=== PATIENT | female | born 1960 | race Caucasian/White ===

== ENCOUNTER 2017-04-28 11:46 | Emergency (ER) | payer OTHER ==
[~2017-04-28] VITALS: Ht 175.3 cm; Wt 120.6 kg
[~2017-04-28 11:46] MED LIST: ACET-1256 PO; AMT50 PO; ASPEC81 PO; ATOR10TA82 PO; CHOL100010 PO; CO Q-10 PO; CYAN10005 PO; FISH OIL 1400 MG PO; METO25TA56 PO; MULT-506 PO; PRLSR20 PO; TRAM-10 PO; VICODIN PO
[2017-04-28 11:55] VITALS: TEMP 36.4; Ht 175.3 cm; Wt 120.6 kg
[2017-04-28] MEDS ORDERED: SODIUM CHLORIDE 0.9% 1000ML 1,000 ML IV STA (12:21)
[2017-04-28] MEDS ORDERED: MoRPHine SULFATE 10 MG/ML CARP/VIAL IV STA (12:21)
[2017-04-28] MEDS ORDERED: MoRPHine SULFATE 4 MG/ML 1 ML CARP\\VIAL ONE (12:29)
[2017-04-28] MEDS ORDERED: OPTIRAY 320 IV PRN (12:30)
[2017-04-28 12:32] LABS: URINE APPEARANCE CLEAR (CLEAR); URINE BILIRUBIN NEG (NEG); URINE COLOR YELLOW; URINE NITRITE NEG (NEG); URINE SPECIFIC GRAVITY 1.028 (1.000-1.030); UROBILINOGEN NEG (NEG); ZZUR CULT IF INDIC CLEAN CATCH NO
[2017-04-28 12:35] LABS: MANUAL MICROSCOPIC REQUIRED? NO; REVIEW REQ? NO
--- NOTE | 2017-04-28 12:37 | EMERGENCY ROOM VISIT NOTE ---
History First contact with patient: 12:13 Chief Complaint: BACK PAIN Stated Complaint: LOW BACK LEFT History of Present Illness The patient is a 57 year old female who presents to the Emergency Room with complaints of left lower back, flank, and abdominal pain for the past 3 days. She states she started having this pain after waking up on Tuesday, no known injuries to the back or abdomen, and pain has been progressively worsening, constant, sharp, worse with movement, better with rest, 10/10. She has been having night sweats for the past few days and waking up at night in pain. She denies fevers/chills, nausea, vomiting, changes in bowel movements, dysuria, urinary frequency, or hematuria. She states she thinks she has had a kidney stone in the past, but this was never confirmed with medical evaluation. Review of Systems A complete 10 point review of systems was reviewed with the patient with pertinent positives and negatives as per history of present illness. All else were negative. Past Medical/Surgical History Medical Problems: (1) Arthroscopy of knee joint (2) Cholecystectomy (3) Cholelith W Cholecys Nec (4) Cholelithiasis Nos (5) Chronic cough (6) Family history of ischemic heart disease (7) History of tonsillectomy (8) Hyperlipidemia (9) Low back pain (10) PALPITATIONS (11) Supraventricular tachycardia (12) Vitamin D deficiency Social History Smoking Status: Never Smoker Marital Status: Occupation Status: employed Current/Historical Medications Scheduled Aspirin Enteric Coated (Ecotrin Or Generic *), 81 MG PO HS Atorvastatin (Lipitor), 40 MG PO HS Diazepam (Valium), 10 MG PO Q8H Metoprolol Tartrate (Lopressor) (Lopressor), 25 MG PO BID Multivitamin (Multivitamin), 1 TAB PO QAM Omeprazole (Prilosec), 20 MG PO QAM Sertraline (Zoloft), 50 MG PO HS [Co Q-10], 200 MG PO HS Scheduled PRN Cyclobenzaprine Hcl (Flexeril), 10 MG PO HS PRN for Muscle Spasms Allergies Reviewed in chart Physical Exam Vital Signs Date Time Temp Pulse Resp B/P (MAP) Pulse Ox O2 Delivery O2 Flow Rate FiO2 04/28/17 16:07 71 18 151/91 96 04/28/17 14:04 71 18 151/91 96 04/28/17 12:51 69 04/28/17 11:55 36.4 68 16 133/84 95 Room Air Physical Exam CONSTITUTIONAL: No acute distress, but appears uncomfortable. Mildly dehydrated. HEENT: Normocephalic, atraumatic. PERRL, EOMI. TMs normal. Pharynx normal. NECK: Supple, full active range of motion without discomfort. RESPIRATORY: Clear to auscultation bilaterally with no wheezing, crackles, rhonchi or stridor. Equal expansion bilaterally. CARDIOVASCULAR: Regular rate and rhythm with no murmurs, rubs or gallops. Normal peripheral perfusion. No edema. GASTROINTESTINAL: TTP of the left flank and upper/lower quadrants, no rebound tenderness of guarding. Soft, nondistended. No palpable masses or HSM. Bowel sounds present in all quadrants. MUSCULOSKELETAL: TTP of the left lower back and flank. No midline tenderness of the thoracic or lumbar spine. Negative straight leg raise. Slow, upright gait observed. INTEGUMENTARY: No rash or other significant dermatologic conditions noted. NEUROLOGIC: Alert and oriented X 4 with normal affect. No focal neurologic deficits noted. Normal strength and sensation all four extremities. 2+ patellar and achilles reflexes bilaterally. Medical Decision & Procedures ER Provider Diagnostic Interpretation: CT OF THE ABDOMEN AND PELVIS WITH CONTRAST CLINICAL HISTORY: Left flank and lower back pain. COMPARISON STUDY: None. TECHNIQUE: Following IV administration of 93 mL of Optiray-320, axial images of the abdomen and pelvis were obtained from the lung bases to the proximal femurs. Images were reviewed in the axial, sagittal, and coronal planes. IV contrast was administered without complication. A dose lowering technique was utilized adhering to the principles of ALARA. CT DOSE: 1317.17 mGy.cm FINDINGS: Lung bases are clear. No pneumatosis, free air or portal venous gas is present. There is no biliary ductal dilatation status post cholecystectomy. The adrenal glands, spleen and pancreas are normal. There is no peripancreatic infiltration. The caliber and wall thickness of small and large bowel are normal. There is colonic diverticulosis without evidence for acute diverticulitis. The appendix is normal. There is no free fluid. Note is made of a 5 mm calculus within the lower pole of the left kidney. The possible 3 mm right upper pole renal is predominantly, this could reflect a cortical calcification. There is mild multifocal scarring of the right kidney. There is apparent left mild to moderate hydronephrosis. However, this apparent collecting system dilatation may reflect parapelvic cysts. The left ureter is not dilated. There are no ureteral calculus. There is no perinephric or periureteral infiltration. IMPRESSION: 1. No ureteral calculi. Apparent mild to moderate left hydronephrosis. On this exam, it is difficult to differentiate collecting system dilatation from parapelvic cysts. Normal caliber left ureter. A recently passed left-sided calculus would be difficult to exclude. 2. 5 mm left renal calculus and 3 mm right renal calculus. 3. Colonic diverticulosis without evidence for acute diverticulitis. ----- LUMBAR SPINE WITHOUT HISTORY: 57 years-old Female recon of spine from CT abd pelvis please acute low back and left flank pain without reported trauma COMPARISON: CT abdomen and pelvis of same day, CTA of the chest 08/24/2012 TECHNIQUE: Multiple axial CT images of the lumbar spine were obtained without contrast. A dose lowering technique was used consistent with the principals of MELISSA. FINDINGS: There are 6 lumbar type nonrib-bearing vertebral segments with transitional lumbosacral anatomy L6. There is pseudoarticulation involving elongated L6 transverse processes with the sacral base. Moderate to severe intervertebral disc space narrowing is seen at L1-L2 and L5-L6. Severe facet arthropathy is noted at L4-L5 and L5-S1. Multilevel endplate spurring. 2 mm retrolisthesis L3 on L4 and 3 mm retrolisthesis L2 on L3, likely secondary to associated long-standing facet arthrosis. Multilevel posterior disc osteophyte complex formations are seen with flattening of the ventral thecal sac. At L3-L4 there appears to be moderate central canal narrowing. Mild dextroscoliosis. No acute fracture or subluxation. Left-sided nephrolithiasis with calculi measuring up to 4 mm. There may be mild dilation of the left renal pelvis and calyces. Parenchymal scarring involves the inferior pole right kidney. IMPRESSION: 1. No acute fracture or subluxation of the lumbar spine. 2. Transitional lumbosacral anatomy as above with 6 lumbar vertebral segments. 3. Mild dextroscoliosis with multilevel discogenic degenerative changes, facet arthrosis and spondylosis as above. 4. Left nephrolithiasis. Laboratory Results 04/28/17 12:40 Red Blood Count 4.26, Mean Corpuscular Volume 88.7, Mean Corpuscular Hemoglobin 29.3, Mean Corpuscular Hemoglobin Concent 33.1, Mean Platelet Volume 8.9, Neutrophils (%) (Auto) 60.1, Lymphocytes (%) (Auto) 32.2, Monocytes (%) (Auto) 6.0, Eosinophils (%) (Auto) 1.3, Basophils (%) (Auto) 0.2, Neutrophils # (Auto) 3.79, Lymphocytes # (Auto) 2.03, Monocytes # (Auto) 0.38, Eosinophils # (Auto) 0.08, Basophils # (Auto) 0.01 04/28/17 12:40 Test 04/28/17 12:10 04/28/17 12:40 Urine Color YELLOW Urine Appearance CLEAR (CLEAR) Urine pH 5.0 (4.5-7.5) Urine Specific Taylor 1.028 (1.000-1.030) Urine Protein NEG (NEG) Urine Glucose (UA) NEG (NEG) Urine Ketones NEG (NEG) Urine Occult Blood NEG (NEG) Urine Nitrite NEG (NEG) Urine Bilirubin NEG (NEG) Urine Urobilinogen NEG (NEG) Urine Leukocyte Esterase NEG (NEG) White Blood Count 6.30 K/uL (4.8-10.8) Red Blood Count 4.26 M/uL (4.2-5.4) Hemoglobin 12.5 g/dL (12.0-16.0) Hematocrit 37.8 % (37-47) Mean Corpuscular Volume 88.7 fL (80-100) Mean Corpuscular Hemoglobin 29.3 pg (25-34) Mean Corpuscular Hemoglobin Concent 33.1 g/dl (32-36) Platelet Count 240 K/uL (130-400) Mean Platelet Volume 8.9 fL (7.4-10.4) Neutrophils (%) (Auto) 60.1 % Lymphocytes (%) (Auto) 32.2 % Monocytes (%) (Auto) 6.0 % Eosinophils (%) (Auto) 1.3 % Basophils (%) (Auto) 0.2 % Neutrophils # (Auto) 3.79 K/uL (1.4-6.5) Lymphocytes # (Auto) 2.03 K/uL (1.2-3.4) Monocytes # (Auto) 0.38 K/uL (0.11-0.59) Eosinophils # (Auto) 0.08 K/uL (0-0.5) Basophils # (Auto) 0.01 K/uL (0-0.2) RDW Standard Deviation 43.2 fL (36.4-46.3) RDW Coefficient of Variation 13.3 % (11.5-14.5) Immature Granulocyte % (Auto) 0.2 % Immature Granulocyte # (Auto) 0.01 K/uL (0.00-0.02) Anion Gap 6.0 mmol/L (3-11) Est Creatinine Clear Calc Drug Dose 103.9 ml/min Estimated GFR () 90.0 Estimated GFR (Non- 77.7 BUN/Creatinine Ratio 17.7 (10-20) Lactic Acid Level 1.0 mmol/L (0.4-2.0) Calcium Level 9.0 mg/dl (8.5-10.1) Total Bilirubin 0.4 mg/dl (0.2-1) Direct Bilirubin < 0.1 mg/dl (0-0.2) Aspartate Amino Transf (AST/SGOT) 14 U/L (15-37) Alanine Aminotransferase (ALT/SGPT) 21 U/L (12-78) Alkaline Phosphatase 90 U/L (45-117) Total Protein 8.2 gm/dl (6.4-8.2) Albumin 3.7 gm/dl (3.4-5.0) Lipase 150 U/L (73-393) Medications Administered Medications (Trade) Dose Ordered Sig/Ruthy Route Start Time Stop Time Status Last Admin Dose Admin Sodium Chloride 1,000 ml @ 999 mls/hr Q1H1M STAT IV 04/28/17 12:21 04/28/17 13:21 DC 04/28/17 12:47 999 MLS/HR Morphine Sulfate (MoRPHine SULFATE INJ) 4 mg STK-MED ONCE .ROUTE 04/28/17 12:29 04/28/17 12:30 DC 04/28/17 12:47 4 MG Ketorolac Tromethamine (Toradol Inj) 15 mg NOW STAT IV 04/28/17 14:34 04/28/17 14:37 DC 04/28/17 14:38 15 MG Diazepam (Valium Tab) 10 mg NOW STAT PO 04/28/17 15:35 04/28/17 15:36 DC 04/28/17 15:54 10 MG Medical Decision CC: Patient presenting with complaint of left flank and abdominal pain Interpretation of Labs: No leukocytosis, no anemia, no significant electrolyte abnormalities, normal renal function, normal liver enzymes and lipase. UA unremarkable. Differential Diagnosis: Includes, but not limited to obstructing ureteral stone , ureteral colic, UTI, pyelonephritis, diverticulitis, pancreatitis, musculoskeletal sprain/strain, lumbar radiculopathy, lumbar fractures/ subluxation, among others. Medication Reconciliation: I attest that I have personally reviewed the patient' s current medication list. Vital signs review: I reviewed the patient's vital signs and interpret them as follows: T: Afebrile; BP: Normotensive; HR: Within normal limits; RR: Within normal limits; Pulse Ox: Within normal limits on room air. Summary: Patient was evaluated at bedside, history and physical exam performed. Patient is alert and oriented, no acute distress but does appear uncomfortable during exam. She has tenderness to palpation of the left lower back, flank, and upper and lower quadrants of the left abdomen. There is no ecchymosis or swelling over the tender area. Orders were placed at bedside for labs, UA, IV fluids for hydration, IV morphine for pain, CT abdomen/pelvis with IV contrast to evaluate for obstructing stone, diverticulitis. Patient discussed with Dr. Serna, who agrees with my assessment and plan. Labs reviewed as above, no acute abnormalities. No UTI. CT imaging reviewed, no evidence for obstructing ureteral stone, diverticulitis , or other acute abnormality. Pt reports known renal cyst. Diffuse degenerative disease of the lumbar spine, no acute fractures or subluxation. Patient reassessed multiple times throughout ED stay, she is improved after morphine and Toradol, but states she is still having spasms in her lower back and side. PO Valium ordered for muscle spasms, patient reports further improvement. Rx for Valium sent to pharmacy. Patient was updated on all results and plan for discharge, she was encouraged to follow closely with the PCP for ongoing management of her pain I also encouraged the patient to discuss referral to ortho-spine as needed with her PCP. She was also given strict return precautions should her symptoms worsen in any way, she verbalized understanding. Patient was discharged home in stable condition and ambulatory. Head Trauma GCS Score: 15 Medication Reconcilliation Current Medication List: was personally reviewed by me Blood Pressure Screening Patient's blood pressure: Elevated blood pressure Blood pressure disposition: Referred to PCP Impression Primary Impression: Acute left flank pain Additional Impression: Musculoskeletal back pain Departure Information Dispostion Home / Self-Care Condition GOOD Prescriptions Diazepam (VALIUM) 10 Mg Tab 10 MG PO Q8H for muss for 4 Days, #[address] WITH MEDICATION Prov: Evelia Rivera, [employer] ESTIMATING ENG[employer]ER 04/28/17 Referrals Ania Aguilar D.O. (PCP) Patient Instructions ED Exercises Lumbar Muscles, ED Flank Pain Uncertain Cause, ED Spasm Back No Trauma, My [facility] Additional Instructions Take it easy for the next few days, no strenuous activity, heavy lifting, or bending/twisting motions, to allow your back to rest. However, it is important that you do not stay immobile for long periods of time, to help keep your muscles from stiffening. Alternate heat and ice for comfort. After heat, you may do gentle stretching and massage to the low back. Ibuprofen 600 mg every 6-8 hours and/or Tylenol 1000 mg every 8 hours as needed for pain. For best pain relief, alternate between ibuprofen and Tylenol every 4 hours. Valium muscle relaxer as prescribed, as needed for muscle tightness and spasms. This may make you drowsy. Do not drive or drink alcohol while taking. Follow up with your PCP in the next few days for further management. You may benefit from physical therapy. Please return to the ER if any problems with bowel or bladder function, numbness in your groin, high fevers, severe abdominal pain or worsening back pain, or if loss of feeling/movement of legs. Work Instructions Return To Work: 1 day Problem Qualifiers
[2017-04-28 13:01] LABS: BASO % 0.2 %; BASO ABS # 0.01 K/uL (0-0.2); COMPLETE YES; EOS % 1.3 %; HEMATOCRIT 37.8 % (37-47); IG% 0.2 %; LYMPH % 32.2 %; LYMPH ABS # 2.03 K/uL (1.2-3.4); MEAN CELL VOLUME 88.7 fL (80-100); MEAN CORPUSCULAR HEMOGLOBIN 29.3 pg (25-34); MEAN CORPUSCULAR HGB CONC 33.1 g/dl (32-36); MEAN PLATELET VOLUME 8.9 fL (7.4-10.4); NEUT % 60.1 %; PLATELET COUNT 240 K/uL (130-400); RED BLOOD COUNT 4.26 M/uL (4.2-5.4)
[2017-04-28] MEDS ORDERED: CYCL10TA6 PO (13:17)
[2017-04-28] MEDS ORDERED: SERT50TA PO (13:17)
[2017-04-28] MEDS ORDERED: ATOR-24 PO (13:17)
[2017-04-28 13:18] LABS: ALT/SGPT 21 U/L (12-78); BLOOD UREA NITROGEN 15 mg/dl (7-18); BUN/CREATININE RATIO 17.7 (10-20); CARBON DIOXIDE 27 mmol/L (21-32); CHLORIDE 104 mmol/L (98-107); CREATININE 0.84 mg/dl (0.60-1.20); GLUCOSE 91 mg/dl (70-99); POTASSIUM 4.1 mmol/L (3.5-5.1); SODIUM 138 mmol/L (136-145)
[2017-04-28 13:21] LABS: ALKALINE PHOSPHATASE 90 U/L (45-117); AST/SGOT 14 U/L (15-37)
--- NOTE | 2017-04-28 14:14 | DIAGNOSTIC IMAGING REPORT ---
LUMBAR SPINE WITHOUT HISTORY: 57 years-old Female recon of spine from CT abd pelvis please acute low back and left flank pain without reported trauma COMPARISON: CT abdomen and pelvis of same day, CTA of the chest 08/24/2012 TECHNIQUE: Multiple axial CT images of the lumbar spine were obtained without contrast. A dose lowering technique was used consistent with the principals of MELISSA. FINDINGS: There are 6 lumbar type nonrib-bearing vertebral segments with transitional lumbosacral anatomy L6. There is pseudoarticulation involving elongated L6 transverse processes with the sacral base. Moderate to severe intervertebral disc space narrowing is seen at L1-L2 and L5-L6. Severe facet arthropathy is noted at L4-L5 and L5-S1. Multilevel endplate spurring. 2 mm retrolisthesis L3 on L4 and 3 mm retrolisthesis L2 on L3, likely secondary to associated long-standing facet arthrosis. Multilevel posterior disc osteophyte complex formations are seen with flattening of the ventral thecal sac. At L3-L4 there appears to be moderate central canal narrowing. Mild dextroscoliosis. No acute fracture or subluxation. Left-sided nephrolithiasis with calculi measuring up to 4 mm. There may be mild dilation of the left renal pelvis and calyces. Parenchymal scarring involves the inferior pole right kidney. IMPRESSION: 1. No acute fracture or subluxation of the lumbar spine. 2. Transitional lumbosacral anatomy as above with 6 lumbar vertebral segments. 3. Mild dextroscoliosis with multilevel discogenic degenerative changes, facet arthrosis and spondylosis as above. 4. Left nephrolithiasis. The above report was generated using voice recognition software. It may contain grammatical, syntax or spelling errors. Electronically signed by: Montrell Diane M.D. 04/28/2017 2:13 PM Dictated Date/Time: 04/28/2017 2:04 PM
--- NOTE | 2017-04-28 14:28 | DIAGNOSTIC IMAGING REPORT ---
CT OF THE ABDOMEN AND PELVIS WITH CONTRAST CLINICAL HISTORY: Left flank and lower back pain. COMPARISON STUDY: None. TECHNIQUE: Following IV administration of 93 mL of Optiray-320, axial images of the abdomen and pelvis were obtained from the lung bases to the proximal femurs. Images were reviewed in the axial, sagittal, and coronal planes. IV contrast was administered without complication. A dose lowering technique was utilized adhering to the principles of ALARA. CT DOSE: 1317.17 mGy.cm FINDINGS: Lung bases are clear. No pneumatosis, free air or portal venous gas is present. There is no biliary ductal dilatation status post cholecystectomy. The adrenal glands, spleen and pancreas are normal. There is no peripancreatic infiltration. The caliber and wall thickness of small and large bowel are normal. There is colonic diverticulosis without evidence for acute diverticulitis. The appendix is normal. There is no free fluid. Note is made of a 5 mm calculus within the lower pole of the left kidney. The possible 3 mm right upper pole renal is predominantly, this could reflect a cortical calcification. There is mild multifocal scarring of the right kidney. There is apparent left mild to moderate hydronephrosis. However, this apparent collecting system dilatation may reflect parapelvic cysts. The left ureter is not dilated. There are no ureteral calculus. There is no perinephric or periureteral infiltration. IMPRESSION: 1. No ureteral calculi. Apparent mild to moderate left hydronephrosis. On this exam, it is difficult to differentiate collecting system dilatation from parapelvic cysts. Normal caliber left ureter. A recently passed left-sided calculus would be difficult to exclude. 2. 5 mm left renal calculus and 3 mm right renal calculus. 3. Colonic diverticulosis without evidence for acute diverticulitis. Electronically signed by: Al Caban M.D. 04/28/2017 2:27 PM Dictated Date/Time: 04/28/2017 2:05 PM
[2017-04-28] MEDS ORDERED: KETOROLAC TROMETHAMINE 30 MG/ML VIAL IV STA (14:34)
[2017-04-28] MEDS ORDERED: DIAZEPAM 5MG TAB PO STA (15:35)
[2017-04-28] MEDS ORDERED: DIAZ10TA3 PO (15:42)
[2017-04-28 16:07] VITALS: BP 151/91; PULSE 71; O2SAT 96
== END 2017-04-28 16:07 | disposition home or self-care (01) ==
LOC: C.EDB 11:47 → C.EDD 16:07
DX: R10.9 Unspecified abdominal pain (principal); M54.9 Dorsalgia, unspecified; E78.5 Hyperlipidemia, unspecified; Z79.82 Long term (current) use of aspirin